=== PATIENT | female | born 1995 | race African-American/Black ===

== ENCOUNTER 2016-10-11 09:30 | Emergency (ER) | payer MEDICAID ==
[~2016-10-11] VITALS: Ht 162.6 cm; Wt 82.0 kg
[2016-10-11 09:33] VITALS: BP 123/78
[2016-10-11] MEDS ORDERED: ARIP5TAB8 PO (09:39)
== END 2016-10-11 09:50 | disposition left against medical advice (07) ==
LOC: ER 09:36
DX: R44.0 Auditory hallucinations (principal); Z53.21 Procedure and treatment not carried out due to patient leaving prior to being seen by health care provider

== ENCOUNTER 2016-10-22 | Emergency (ER) | payer MEDICAID ==
[~2016-10-22] VITALS: Ht 167.6 cm; Wt 81.6 kg
[~2016-10-22] MED LIST: ARIP5TAB8 PO
[2016-10-22] MEDS ORDERED: TETRACAINE 0.5% OPHTH DROPS 4ML OP ONE (01:00)
[2016-10-22] MEDS ORDERED: FLUORESCEIN SODIUM 1MG/STRIP OP ONE (01:00)
[2016-10-22 01:19] LABS: HCG SCREEN NEGATIVE
[2016-10-22 04:45] VITALS: BP 101/58
== END 2016-10-22 07:02 | disposition left against medical advice (07) ==
LOC: ER
DX: H05.3 Deformity of orbit (principal); F20.9 Schizophrenia, unspecified; F12.10 Cannabis abuse, uncomplicated; F17.200 Nicotine dependence, unspecified, uncomplicated; Y09 Assault by unspecified means; Y93.89 Activity, other specified; Y99.8 Other external cause status; Y92.89 Other specified places as the place of occurrence of the external cause
CPT/HCPCS: 36415; 70450; 70486; 84703; 99285; G0482

== ENCOUNTER 2016-11-20 20:29 | Emergency (ER) | payer MEDICAID ==
[~2016-11-20] VITALS: Ht 172.7 cm; Wt 72.6 kg
[2016-11-20 20:33] VITALS: BP 115/65
== END 2016-11-20 23:49 | disposition left against medical advice (07) ==
LOC: ER 20:33
DX: Z53.21 Procedure and treatment not carried out due to patient leaving prior to being seen by health care provider (principal)

== ENCOUNTER 2017-02-26 00:40 | Emergency (ER) | payer MEDICAID ==
[~2017-02-26] VITALS: Ht 162.6 cm; Wt 81.0 kg
[~2017-02-26 00:40] MED LIST changes: +ABIL5 PO; -ARIP5TAB8 PO
[2017-02-26 04:37] LABS: BASOPHILS % 1.1 % (0.0-2.0); EOSINOPHILS % 0.3 % (0.0-5.0); HEMATOCRIT. 37.8 % (36.0-48.0); HEMOGLOBIN. 12.6 g/dL (12.0-16.0); MEAN CORPUSCULAR HEMOGLOBIN 29.8 pg (28.0-32.0); MEAN CORPUSCULAR VOLUME 89.1 fL (81.0-99.0); MEAN PLATELET VOLUME 7.8 fl (7.4-10.4); MONOCYTES % 10.8 % (2.0-8.0); NEUTROPHILS % 53.8 % (40.0-76.0); PLATELET 254 x1000/uL (130-400); RED BLOOD CELL COUNT 4.25 mill/uL (4.2-5.4); RED CELL DISTRIBUTION WIDTH 16.1 % (11.6-14.6)
[2017-02-26 04:51] LABS: CARBON DIOXIDE 27 mEq/L (21-32); CHLORIDE 105 mEq/L (98-107); ETHANOL BLOOD < 10 mg/dL
[2017-02-26 06:52] LABS: HCG SCREEN NEGATIVE
[2017-02-26 10:48] LABS: CLARITY URINE CLOUDY (CLEAR); COLOR URINE YELLOW (YELLOW); GLUCOSE URINE NEGATIVE (NEGATIVE); KETONES URINE 1+ (NEGATIVE); LEUKOCYTE ESTERASE URINE TRACE (NEGATIVE); NITRITE URINE NEGATIVE (NEGATIVE); OCCULT BLOOD URINE NEGATIVE (NEGATIVE); PROTEIN URINE NEGATIVE (NEGATIVE); SPECIFIC GRAVITY URINE 1.023 (1.005-1.030)
[2017-02-26 11:44] LABS: *AMPHETAMINES SCREEN URINE PRESUMTIVE POSITIVE (NEGATIVE); *BARBITURATES SCREEN URINE NEGATIVE (NEGATIVE); *BENZODIAZEPINES SCREEN URINE NEGATIVE (NEGATIVE); *COCAINE SCREEN URINE PRESUMTIVE POSITIVE (NEGATIVE); CANNABINOID URINE SCREEN PRESUMTIVE POSITIVE (NEGATIVE); METHADONE URINE SCREEN NEGATIVE (NEGATIVE); OPIATES URINE SCREEN NEGATIVE (NEGATIVE); PHENCYCLIDINE URINE SCREEN PRESUMTIVE POSITIVE (NEGATIVE)
[2017-02-26 13:20] VITALS: BP 122/74
== END 2017-02-26 14:12 | disposition home or self-care (01) ==
LOC: ER 00:48
DX: F19.10 Other psychoactive substance abuse, uncomplicated (principal); F15.10 Other stimulant abuse, uncomplicated; F16.10 Hallucinogen abuse, uncomplicated
CPT/HCPCS: 36415; 80053; 80305; 80307; 80329; 81001; 84703; 85025; 99284; G0482; Z7610

== ENCOUNTER 2017-09-28 02:19 | Emergency (ER) | payer MEDICAID ==
[~2017-09-28] VITALS: Ht 170.2 cm; Wt 81.0 kg
[2017-09-28 05:07] LABS: HEMATOCRIT. 38.4 % (36.0-48.0); MEAN CORPUSCULAR HEMOGLOBIN 31.2 pg (28.0-32.0); MEAN CORPUSCULAR VOLUME 92.2 fL (81.0-99.0); MEAN PLATELET VOLUME 7.9 fl (7.4-10.4); PLATELET 258 x1000/uL (130-400); RED BLOOD CELL COUNT 4.17 mill/uL (4.2-5.4); RED CELL DISTRIBUTION WIDTH 13.9 % (11.6-14.6)
[2017-09-28 05:19] LABS: CHLORIDE 101 mEq/L (98-107); ETHANOL BLOOD < 10 mg/dL
[2017-09-28 06:58] LABS: PLATELET ESTIMATE NORMAL
[2017-09-28 08:44] LABS: CLARITY URINE CLEAR (CLEAR); COLOR URINE YELLOW (YELLOW); KETONES URINE NEGATIVE (NEGATIVE); LEUKOCYTE ESTERASE URINE NEGATIVE (NEGATIVE); NITRITE URINE NEGATIVE (NEGATIVE); OCCULT BLOOD URINE NEGATIVE (NEGATIVE); PROTEIN URINE NEGATIVE (NEGATIVE); SPECIFIC GRAVITY URINE 1.008 (1.005-1.030); UROBILINOGEN URINE 0.2 E.U./dL (0.2-1.0)
[2017-09-28 09:21] LABS: *AMPHETAMINES SCREEN URINE PRESUMTIVE POSITIVE (NEGATIVE); *BARBITURATES SCREEN URINE NEGATIVE (NEGATIVE); *BENZODIAZEPINES SCREEN URINE NEGATIVE (NEGATIVE); *COCAINE SCREEN URINE PRESUMTIVE POSITIVE (NEGATIVE); CANNABINOID URINE SCREEN PRESUMTIVE POSITIVE (NEGATIVE); METHADONE URINE SCREEN NEGATIVE (NEGATIVE); OPIATES URINE SCREEN NEGATIVE (NEGATIVE); PHENCYCLIDINE URINE SCREEN NEGATIVE (NEGATIVE)
[2017-09-28 09:36] VITALS: BP 125/76
== END 2017-09-28 09:37 | disposition home or self-care (01) ==
LOC: ER 02:19
DX: F14.129 Cocaine abuse with intoxication, unspecified (principal); F15.129 Other stimulant abuse with intoxication, unspecified; F12.129 Cannabis abuse with intoxication, unspecified; F20.9 Schizophrenia, unspecified
CPT/HCPCS: 36415; 80048; 80305; 80307; 80329; 81003; 81025; 85025; 99284; G0482; Z7610